=== PATIENT | female | born 1950 | race Caucasian/White ===

== ENCOUNTER 2017-02-24 09:54 | Emergency (ER) | payer MEDICARE ==
[2017-02-24] MEDS ORDERED: Sodium Chloride 0.9% 1000 ML 1,000 ML IV STA (10:15)
--- NOTE | 2017-02-24 10:27 | ERPHSYRPT ---
- History of Present Illness Time Seen by Provider: 02/24/17 10:23 Source: family Exam Limitations: clinical condition Patient Subjective Stated Complaint: pt son reports pt has had increased confusion beginning this am-states that pt did not take her meds correctly but unsure to what degree-states that pt has hx of confusion but it is increased Triage Nursing Assessment: pt pink warm et dry-alert to person place family- unclear about time-cataracs noted-pt moving extremities with universal mild weakness-no facial droop noted-pt son reports that pt has same clothes on from yesterday et he doesn't think she has showered-pt lives by self with help coming to home Physician History: pt son reports pt has had increased confusion beginning this am-states that patient did not take her meds correctly but unsure to what degree-states that pt has hx of confusion but it is increased. Patient has off and on episode of confusion, but this one has been longer one, she doesnot remember her grandchildren name, talking about her mother who has been for years and talking about her whom have been for 25 years. Time of Onset/Last Time Seen Normal: yesterday at 10.30 AM Timing/Duration: yesterday Severity: moderate Character of Deficits: impaired speech Deficits: no difficulties Baseline/Normal Cognition: alert but confused Current Cognition: alert but confused, alert/disoriented to time Baseline Gait: uses cane Associated Symptoms: confusion, No loss of consciousness, No weakness, No numbness/tingling in legs/feet, No headache Allergies/Adverse Reactions: No Known Drug Allergies Allergy (Verified 02/24/17 10:08) Home Medications: Clonazepam 0.5 mg [Klonopin 0.5 MG] 0.5 mg PO TID 03/23/13 [History] Clonazepam [Klonopin] 1 mg PO HS 03/23/13 [History] Lamotrigine [Lamictal] 300 mg PO BID 03/23/13 [History] Multivitamin [Daily Celestino] 2 tab PO DAILY 03/23/13 [History] Potassium Chloride [K-Dur] 10 meq PO DAILY 03/23/13 [History] Topiramate 100 mg [Topamax 100 MG] 300 mg PO HS 03/23/13 [History] Tamsulosin HCl 0.4 mg [Flomax 0.4 MG] 0.4 mg PO HS 03/24/13 [History] Topiramate 100 mg [Topamax 100 MG] 200 mg PO QAM 12/30/14 [History] Acetaminophen [Tylenol] 2 tab PO Q4HPRN PRN 08/22/15 [History] Calcium Carbonate [Calcium] 2 tab PO DAILY 08/22/15 [History] Losartan Potassium [Cozaar 100Mg Tablet] 1 tab PO DAILY 08/22/15 [History] Hx Tetanus, Diphtheria Vaccination/Date Given: Yes Hx Influenza Vaccination/Date Given: No Hx Pneumococcal Vaccination/Date Given: No Immunizations Up to Date: Yes - Review of Systems Constitutional: No Fever, No Chills Eyes: No Symptoms Ears, Nose, & Throat: No Symptoms Respiratory: No Cough, No Dyspnea Cardiac: No Chest Pain, No Edema, No Syncope Abdominal/Gastrointestinal: No Abdominal Pain, No Nausea, No Vomiting, No Diarrhea Genitourinary Symptoms: No Dysuria Musculoskeletal: No Back Pain, No Neck Pain Skin: No Rash Neurological: Irritability, No Dizziness, No Focal Weakness, No Headache, No Sensory Changes Psychological: Memory Loss Endocrine: No Symptoms Hematologic/Lymphatic: No Symptoms All Other Systems: Reviewed and Negative - Past Medical History Pertinent Past Medical History: Yes Neurological History: Seizures ENT History: Cataracts Cardiac History: Hypertension Respiratory History: No Pertinent History Endocrine Medical History: No Pertinent History Musculoskeletal History: Fractures GI Medical History: No Pertinent History History: Other Psycho-Social History: No Pertinent History Female Reproductive Disorders: Breast Cancer Other Medical History: hx broken left shoulder with keyur placement and later had keyur removed. has been diagnosed with cataracts on both eyes but not large enough to have surgery yet. history of seizures most recent on 08/12/15 - Past Surgical History Past Surgical History: Yes Neuro Surgical History: Other Cardiac: No Pertinent History Respiratory: No Pertinent History Gastrointestinal: No Pertinent History Genitourinary: No Pertinent History Musculoskeletal: Orthopedic Surgery Female Surgical History: Lumpectomy, Mastectomy Other Surgical History: had brain surgery with area on back of right side of head brain removed to hope to help with seizures but didnt help, left shoulder surgery with keyur placed and then later removed. right mastectomy and lumpectomy prior to mastectomy - Social History Smoking Status: Never smoker Exposure to second hand smoke: No Drug Use: none Patient Lives Alone: No - Female History Hx Now: No - Nursing Vital Signs Nursing Vital Signs: Initial Vital Signs Temperature 97.5 F 02/24/17 09:59 Pulse Rate 80 02/24/17 09:59 Respiratory Rate 20 02/24/17 09:59 Blood Pressure 140/73 02/24/17 09:59 O2 Sat by Pulse Oximetry 96 02/24/17 09:59 Pain Scale Pain Intensity 0 - [place] Coma Scale Best Eye Response (Will): (4) open spontaneously Best Verbal Response (Will): (5) oriented Best Motor Response (Will): (6) obeys commands Will Total: 15 - Physical Exam General Appearance: no apparent distress, alert Eye Exam: bilateral eye: PERRL, EOMI Ears, Nose, Throat Exam: normal ENT inspection, moist mucous membranes Neck Exam: normal inspection, non-tender, supple Respiratory: normal breath sounds, lungs clear, airway intact, No respiratory distress Cardiovascular: regular rate/rhythm, No edema Gastrointestinal: soft, No tenderness, No distention Back Exam: normal inspection Extremity Exam: normal inspection, No pedal edema Mental Status: alert, 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 to 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, 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 Exam: normal hearing, tongue midline Coordination/Gait: normal gait Motor/Sensory: no motor deficit Skin Exam: normal color, warm, dry, No rash SpO2 Interpretation: normal SpO2: 96 Oxygen Delivery: Room Air Ordered Tests: Active Orders 24 hr Category Date Time Status UA W/RFX UR CULTURE Stat Lab 02/24/17 12:36 Completed Medication Summary Discontinued Medications Generic Name Dose Route Start Last Admin Trade Name Lupis PRN Reason Stop Dose Admin Sodium Chloride 1,000 mls @ 999 mls/hr 02/24/17 10:15 02/24/17 10:59 Sodium Chloride 0.9% 1000 Ml IV 02/24/17 11:15 999 mls/hr .Q1H1M STA Administration Sodium Chloride Confirm 02/24/17 10:54 Sodium Chloride 0.9% 1000 Ml Administered 02/24/17 10:55 Dose 1,000 mls @ ud .ROUTE .STK-MED ONE Lab/Rad Data: Laboratory Result Diagrams 02/24/17 10:31 02/24/17 10:31 Laboratory Results 09/17/17 09/17/17 09/17/17 Range/Units 12:36 10:31 10:31 WBC (4.0-10.5) K/mm3 RBC (4.1-5.4) M/mm3 Hgb (12.0-16.0) gm/dl Hct (35-47) % MCV (78-100) fl MCH (26-32) pg MCHC (32-36) g/dl RDW (11.5-14.0) % Plt Count (150-450) K/mm3 MPV (6-9.5) fl Gran % (36.0-66.0) % Lymphocytes % (24.0-44.0) % Monocytes % (0.0-12.0) % Eosinophils % (0.00-5.0) % Basophils % (0.0-0.4) % Basophils # (0-0.4) Sodium 144 (136-145) mEq/L Potassium 3.7 (3.5-5.1) mEq/L Chloride 110 H (98-107) mEq/L Carbon Dioxide 24.6 (21-32) mEq/L Anion Gap 13.2 (5-15) MEQ/L BUN 26 H (9-20) mg/dL Creatinine 1.33 H (0.55-1.30) mg/dl Estimated GFR 43 ML/MIN Glucose 183 H (70-110) MG/DL Hemoglobin A1c (4.5-6.2) Lactic Acid (0.4-2.0) Calcium 9.4 (8.5-10.1) mg/dL Total Bilirubin 0.30 (0.2-1.0) mg/dL AST 16 (15-37) U/L ALT 19 (12-78) U/L Alkaline Phosphatase 116 (46-116) U/L Troponin I < 0.017 (0.000-0.056) ng/ml Serum Total Protein 6.6 (6.4-8.2) gm/dL Albumin 3.8 (3.4-5.0) g/dL Ur Collection Type CLEAN CATCH Urine Color YELLOW (YELLOW) Urine Appearance CLEAR (CLEAR) Urine pH 8.0 (5-6) Ur Specific [place] 1.010 (1.005-1.025) Urine Protein NEGATIVE (Negative) Urine Ketones NEGATIVE (NEGATIVE) Urine Blood NEGATIVE (0-5) Reji/ul Urine Nitrite NEGATIVE (NEGATIVE) Urine Bilirubin NEGATIVE (NEGATIVE) Urine Urobilinogen NORMAL (0-1) mg/dL Ur Leukocyte Esterase NEGATIVE (NEGATIVE) Urine Glucose NEGATIVE (NEGATIVE) mg/dL Specimen Received 02-24 1230 02/24/17 02/24/17 02/24/17 Range/Units 10:31 10:30 10:00 WBC 4.5 (4.0-10.5) K/mm3 RBC 4.15 (4.1-5.4) M/mm3 Hgb 12.2 (12.0-16.0) gm/dl Hct 38.3 (35-47) % MCV 92.3 (78-100) fl MCH 29.4 (26-32) pg MCHC 31.9 L (32-36) g/dl RDW 13.8 (11.5-14.0) % Plt Count 194 (150-450) K/mm3 MPV 9.8 H (6-9.5) fl Gran % 65.8 (36.0-66.0) % Lymphocytes % 20.7 L (24.0-44.0) % Monocytes % 7.9 (0.0-12.0) % Eosinophils % 4.9 (0.00-5.0) % Basophils % 0.7 (0.0-0.4) % Basophils # 0.03 (0-0.4) Sodium (136-145) mEq/L Potassium (3.5-5.1) mEq/L Chloride (98-107) mEq/L Carbon Dioxide (21-32) mEq/L Anion Gap (5-15) MEQ/L BUN (9-20) mg/dL Creatinine (0.55-1.30) mg/dl Estimated GFR ML/MIN Glucose (70-110) MG/DL Hemoglobin A1c 5.5 (4.5-6.2) Lactic Acid 1.8 (0.4-2.0) Calcium (8.5-10.1) mg/dL Total Bilirubin (0.2-1.0) mg/dL AST (15-37) U/L ALT (12-78) U/L Alkaline Phosphatase (46-116) U/L Troponin I (0.000-0.056) ng/ml Serum Total Protein (6.4-8.2) gm/dL Albumin (3.4-5.0) g/dL Ur Collection Type Urine Color (YELLOW) Urine Appearance (CLEAR) Urine pH (5-6) Ur Specific [place] (1.005-1.025) Urine Protein (Negative) Urine Ketones (NEGATIVE) Urine Blood (0-5) Reji/ul Urine Nitrite (NEGATIVE) Urine Bilirubin (NEGATIVE) Urine Urobilinogen (0-1) mg/dL Ur Leukocyte Esterase (NEGATIVE) Urine Glucose (NEGATIVE) mg/dL Specimen Received - Departure Time of Disposition: 16:00 Departure Disposition: Home Clinical Impression: Transient ischemic attack involving internal carotid artery, History of seizures as a child Condition: Stable Critical Care Time: Yes Critical Care Time(excluding separately billable procedures): 30-74 minutes Referrals: RAMÓN HARRIS [Primary Care Provider] - ANTONIA CARLISLE [NON-STAFF PHY W/O PRIVILEGES] - Instructions: Transient Ischemic Attack Additional Instructions: During these, ER visit evaluation, it appears that Val may have a transient episode of ischemic stroke, which might have caused memory loss. We have done some blood test and CAT scan of the head, which is showing some abnormal findings. I would like you to make an appointment with the your neurologist for further workup and discussion about the management. Continue all her rest of the medicine as prescribed. If symptoms recur. Please bring her back to the emergency room. Please somebody should stay with her for next 24 to 48 hours.
[2017-02-24 10:47] LABS: BASOPHIL % 0.7 % (0.0-0.4); Eosinophil % 4.9 % (0.00-5.0); Granulocytes % 65.8 % (36.0-66.0); Lymphocytes % 20.7 % (24.0-44.0); Mean Cell Volume 92.3 fl (78-100); Mean Corpuscular Hemoglobin 29.4 pg (26-32); Mean Platelet Volume 9.8 fl (6-9.5); Monocytes % 7.9 % (0.0-12.0); Platelet Count 194 K/mm3 (150-450); Red Blood Count 4.15 M/mm3 (4.1-5.4); Red Cell Distribution Width 13.8 % (11.5-14.0); White Blood Count 4.5 K/mm3 (4.0-10.5)
[2017-02-24] MEDS ORDERED: Sodium Chloride 0.9% 1000 ML 1,000 ML ONE (10:54)
[2017-02-24 11:01] LABS: ALBUMIN 3.8 g/dL (3.4-5.0); ANION GAP 13.2 MEQ/L (5-15); BILIRUBIN,TOTAL 0.3 mg/dL (0.2-1.0); Carbon Dioxide 24.6 mEq/L (21-32); Potassium 3.7 mEq/L (3.5-5.1); Total Protein 6.6 gm/dL (6.4-8.2)
[2017-02-24 12:46] LABS: ADD URINE CULTURE? NO (NO); Bilirubin NEGATIVE (NEGATIVE); Blood NEGATIVE Ery/ul (0-5); COMPLETE URINE MICROSCOPIC? NO; Collection Type CLEAN CATCH; Glucose NEGATIVE (NEGATIVE); Leukocyte Esterase NEGATIVE (NEGATIVE)
[2017-02-24 13:12] VITALS: BP 124/66; PULSE 72
--- NOTE | 2017-02-24 21:08 | XRAY ---
Indication: Confusion. Multiple contiguous axial images obtained through the head without contrast. Comparison: None There has been previous right temporoparietal craniotomy with underlying encephalomalacia. Elsewhere age-appropriate global atrophy and mild periventricular degenerative microvascular ischemia. No acute intracranial hemorrhage or mass effect. Remaining bony calvarium intact. Visualized paranasal sinuses and mastoid air cells clear. Impression: 1. Previous right temporoparietal craniotomy with underlying encephalomalacia. 2. Atrophy and degenerative microvascular ischemia within normal limits for patient's age. 3. No acute intracranial abnormalities. Comment: Preliminary interpretation was made by [facility]. No discrepancy. CTDI 68.15
[2017-02-25 12:20] VITALS: O2SAT 96
== END 2017-02-24 13:10 | disposition home or self-care (01) ==
LOC: ED 09:54
DX: G45.8 Other transient cerebral ischemic attacks and related syndromes (principal); R56.9 Unspecified convulsions; Z79.899 Other long term (current) drug therapy; I10 Essential (primary) hypertension
CPT/HCPCS: 36000; 36415; 70450; 80053; 81002; 83036; 83605; 84484; 85025; 93005; 96360; 99285